=== PATIENT | male | born 1945 | race Caucasian/White ===

== ENCOUNTER 2017-07-31 07:05 | Day surgery (SDC) | payer OTHER ==
[~2017-07-31] VITALS: Ht 185.4 cm; Wt 97.7 kg
[2017-07-31 07:25] VITALS: BP 153/91; PULSE 91; RESP 20; TEMP 97.6; O2SAT 97
[2017-07-31] MEDS ORDERED: LISI-515 PO (07:31)
[2017-07-31] MEDS ORDERED: ATOR20TA15 PO (07:31)
[2017-07-31] MEDS ORDERED: SODIUM CHLORIDE 0.9% 1000 ML IV SCH (07:45)
[2017-07-31] MEDS ORDERED: POVIDONE IODINE 5% (ANTISEPSIS KIT) 4 APPLICATIONS EACH NARE SCH (07:45)
[2017-07-31] MEDS ORDERED: CHLORHEXIDINE GLUCONATE 2 % 1 PACK (2 CLOTHS) TOPICAL SCH (07:45)
[2017-07-31] MEDS ORDERED: ceFAZolin 2 GM PREMIX 50 ML - implanted port/tunneled catheter insertion IV SCH (07:45)
[2017-07-31] MEDS ORDERED: VANCOMYCIN 1000 MG/NS 250 ML - implanted port/tunneled catheter IV SCH ×2 (07:45)
[2017-07-31] MEDS ORDERED: fentaNYL CITRATE 250 MCG/5 ML AMP ONE (08:12)
[2017-07-31] MEDS ORDERED: MIDAZOLAM HCL 5 MG/5 ML VIAL ONE (08:12)
--- NOTE | 2017-07-31 09:14 | PD.RAD ---
Post Procedure Progress Note Pre Procedure Diagnosis: (1) Bladder cancer Post Procedure Diagnosis: (1) Bladder cancer Procedure Date: Jul 31, 2017 Supervising Radiologist: Armaan Presley Estimated blood loss: 3cc Anesthesia: Local, Conscious Sedation Plan of Activity Patient to Unit: ROPU Patient Condition: Fair Additional Comments: Port placed via the right IJ Catheter / Port in good position OK for use. Full dictated report to follow See PACS Report for procedural detail/treatment Armaan Presley MD Jul 31, 2017 09:14
[2017-07-31] MEDS ORDERED: SODIUM CHLORIDE 0.9% FLUSH 10 ML FLUSH IVF PRN (09:15)
[2017-07-31 09:20] VITALS: BP 102/75; PULSE 85; RESP 18; TEMP 97.8; O2SAT 100
[2017-07-31 09:25] VITALS: BP 102/75; PULSE 88; RESP 17; TEMP 97.8; O2SAT 100
[2017-07-31 09:40] VITALS: BP 123/70; PULSE 101; RESP 18; O2SAT 100
--- NOTE | 2017-07-31 10:06 | RADRPT ---
EXAM DATE/TIME: 07/31/2017 09:44 [facility] COMPARISON: No previous studies available for comparison. INDICATIONS : Patient presents with bladder cancer in need of port placement for treatment. MEDICAL HISTORY : HTN Cancer Gout SURGICAL HISTORY : Colonoscopy ENCOUNTER: Initial ACUITY: 4-6 months PAIN SCORE: 0/10 LOCATION: N/A FLUORO TIME: 0.4 IMAGE SERIES: SEDATION TIME: 30 minutes ACCESS: Right internal jugular vein SEDATION: 1.) 5 mg midazolam (Versed) IV 2.) 250 mcg fentanyl (Sublimaze) IV Prophylactic antibiotics were administered with appropriate pre-procedure timing. Vancomycin within 2 hours of procedure, Ancef (or alternative) within 1 hour of procedure. DEVICE: 1. 8 [place] single lumen Smart Port CT PROCEDURE : 1. Continuous pulse oximetry and EKG monitoring. 2. Intravenous conscious sedation. 3. Ultrasound guidance for venous access. 4. Fluoroscopic guided implantable central venous port placement. The patient was placed supine. The neck was prepped in sterile fashion. Full sterile technique was u sed, including cap, mask, sterile gloves and gown, and a large sterile sheet. Hand hygiene and 2% ch lorhexidine Betadine was utilized per protocol for cutaneous antisepsis with appropriate dry time for site. Sterile gel and sterile probe cover were utilized for ultrasound guidance. The skin and sub cutaneous tissues were infiltrated with local anesthetic solution. Under direct ultrasound guidance, central venous access was accomplished in the targeted vessel. The ultrasound images depicting access guidance were stored and saved to PACS for permanent record. A s ubcutaneous pocket was created using blunt dissection. The port was introduced to the pocket. The c atheter tubing was fed through a subcutaneous tunnel to the venotomy site. The catheter tubing was c ut to a suitable length and then was introduced through a valved Peel-Away sheath and positioned with catheter tubing tip at the cavo-atrial junction level. The pocket incision was closed with subcutic ular Vicryl suture. Steri-Strips were applied. The port was flushed and locked with heparin solutio n per protocol. Sterile dressing was applied to the site. The patient tolerated the procedure well. Conscious sedation was performed with the prescribed dosages and duration as above in the presence of an independent trained radiology nurse to assist in the monitoring of the patient. EKG and oximetry remained stable throughout the procedure. The patient tolerated the procedure well and there were no complications. The patient was sent to post anesthesia recovery in stable condition. CONCLUSION: Uncomplicated ultrasound and fluoroscopic guided implanted central venous port catheter placement as described in detail above. An 8 [place] Power port was placed. Armaan Presley MD on July 31, 2017 at 10:04 Board Certified Radiologist. This report was verified electronically.
[2017-07-31 10:10] VITALS: BP 116/66; PULSE 103; RESP 19; O2SAT 100
[2017-07-31 10:40] VITALS: BP 122/70; PULSE 92; RESP 18; O2SAT 98
== END 2017-07-31 10:55 | disposition home or self-care (01) ==
LOC: HRIP 07:05 → HROP 07:05
PROVIDERS: ATTEND Internal Medicine
DX: C67.9 Malignant neoplasm of bladder, unspecified (principal); I10 Essential (primary) hypertension; M10.9 Gout, unspecified
CPT/HCPCS: 36561; 76937; 77001; 99152; 99153; C1788; J0690; J1642; J2250; J3010; J3370; J7030; J7050